=== PATIENT | female | born 1995 | race Caucasian/White ===

== ENCOUNTER 2018-02-23 06:54 | Day surgery (SDC) | payer BC ==
[~2018-02-23] VITALS: Ht 154.9 cm; Wt 57.4 kg
[~2018-02-23 06:54] MED LIST: ESOM40CA PO
[2018-02-23 07:39] VITALS: Ht 154.9 cm; Wt 57.4 kg
[2018-02-23 07:58] VITALS: BP 109/73; PULSE 73; RESP 18
[2018-02-23] MEDS ORDERED: FENTAnyl 50 MCG/ML VIAL ONE (08:05)
[2018-02-23] MEDS ORDERED: PROPOFOL 20 ML ONE (08:05)
== END 2018-03-01 11:30 | disposition home or self-care (01) ==
LOC: GIL 06:54
PROVIDERS: ATTEND Internal Medicine Gastroenterology
DX: K21.0 Gastro-esophageal reflux disease with esophagitis (principal); K29.00 Acute gastritis without bleeding
CPT/HCPCS: 43239; 84703; 88305; 88312; 88313; Z7610; J3010